=== PATIENT | male | born 1980 | race Caucasian/White ===

== ENCOUNTER 2020-10-12 23:47 | Emergency (ER) | payer OTHER ==
[2020-10-12 23:56] VITALS: BP 125/91; TEMP 98.1; BMI 23.7
[2020-10-13 01:02] LABS: BASO % 0.9 % (0-2.0); EOS % 3.7 % (0-4.5); HEMOGLOBIN 14.4 GM/dL (11.7-16.9); LYMPH % 30.6 % (8-40); MCH 27.7 pg (25.7-33.7); MCHC 34.2 g/dl (32.0-35.9); MEAN CELL VOLUME 81.1 fl (80-96); MEAN PLT VOLUME 8.2 fl (7.5-11.1); MONO % 9.3 % (3.8-10.2); NEUT % 55.5 % (42.8-82.8); PLATELET COUNT 272 K/MM3 (134-434); RBC 5.18 M/mm3 (4.00-5.60); RDW 13.7 % (11.9-15.9); WHITE BLOOD COUNT 7.5 K/mm3 (4.0-10.0)
[2020-10-13 01:20] LABS: CALCIUM 9.4 mg/dL (8.5-10.1)
[2020-10-13 01:21] LABS: ALBUMIN 4.1 g/dl (3.4-5.0); BLOOD UREA NITROGEN 22.3 mg/dL (7-18)
[2020-10-13 01:24] LABS: CREATININE 1.1 mg/dL (0.55-1.3)
[2020-10-13 01:26] LABS: BILIRUBIN,TOTAL 0.8 mg/dL (0.2-1)
[2020-10-13] MEDS ORDERED: MAG HYDROX/AL HYDROX/SIMETH -MYLANTA- ORAL SUSPENSION PO ONE (01:34)
[2020-10-13] MEDS ORDERED: FAMOTIDINE 20 MG/50 ML IVPB 20 MG/50 ML MG IVPB ONE (01:34)
[2020-10-13] MEDS ORDERED: POTASSIUM CHLORIDE TABS 20 MEQ TABLET.ER (FP) PO ONE ×2 (01:34→01:52)
[2020-10-13] MEDS ORDERED: POTASSIUM CHLORIDE TABS 10 MEQ TABLET.ER (FP) PO ONE ×2 (01:34)
[2020-10-13] MEDS ORDERED: FAMOTIDINE 20 MG TABLET PO ONE (01:35)
[2020-10-13] MEDS ORDERED: ACETAMINOPHEN 325 MG TABLET (FP) PO ONE (01:42)
[2020-10-13] MEDS ORDERED: ACETAMINOPHEN 500 MG TABLET (FP) PO ONE (01:42)
[2020-10-13] MEDS ORDERED: KCL 10 MEQ IVPB 10 MEQ/100 ML INFUS.BAG IVPB SCH (01:45)
[2020-10-13 01:50] LABS: MAGNESIUM 2.1 mg/dL (1.8-2.4)
[2020-10-13] MEDS ORDERED: ACETAMINOPHEN 325 MG TABLET (FP) ONE (01:51)
[2020-10-13] MEDS ORDERED: MAG HYDROX/AL HYDROX/SIMETH 30 ML UNIT-DOSE CUP ONE (01:52)
[2020-10-13 05:15] VITALS: PULSE 77
== END 2020-10-13 05:19 | disposition home or self-care (01) ==
LOC: JER 23:47
PROC: 3E033GC Introduction of Other Therapeutic Substance into Peripheral Vein, Percutaneous Approach (ICD-10-PCS; principal; 2020-10-12)
DX: R07.89 Other chest pain (principal); E87.6 Hypokalemia
CPT/HCPCS: 36415; 71045-TC-FY; 80053; 83735; 84484; 85025; 93005; 93010; 99285-25

== ENCOUNTER 2020-10-17 01:24 | Observation (INO) | payer OTHER ==
[2020-10-17 03:24] LABS: HEMOGLOBIN 14.3 GM/dL (11.7-16.9); MCH 27.5 pg (25.7-33.7); MEAN PLT VOLUME 8.1 fl (7.5-11.1)
[2020-10-17 03:31] LABS: COCAINE, UR NEGATIVE ng/ml (CUTOFF=300); METHADONE, UR NEGATIVE ng/ml (CUTOFF=300); URINE BARBITURATES NEGATIVE ng/ml (CUTOFF=200); URINE BENZODIAZEPINES NEGATIVE ng/ml (CUTOFF=200)
[2020-10-17 03:32] LABS: OPIATES, URI NEGATIVE ng/ml (CUTOFF=300); PHENCYCLIDINE,URINE NEGATIVE ng/ml (CUTOFF=25); URINE AMPHETAMINES NEGATIVE ng/ml (CUTOFF=500)
[2020-10-17 03:37] LABS: BASO % 1.4 % (0-2.0); EOS % 3.6 % (0-4.5); HEMATOCRIT 42.4 % (35.4-49); LYMPH % 36.8 % (8-40); MCHC 33.8 g/dl (32.0-35.9); MEAN CELL VOLUME 81.2 fl (80-96); NEUT % 48.2 % (42.8-82.8); PLATELET COUNT 298 K/MM3 (134-434); RBC 5.22 M/mm3 (4.00-5.60); RDW 13.6 % (11.9-15.9); WHITE BLOOD COUNT 6.2 K/mm3 (4.0-10.0)
[2020-10-17 03:39] LABS: POTASSIUM 3.2 mmol/L (3.5-5.1)
[2020-10-17 03:41] LABS: BLOOD UREA NITROGEN 18.1 mg/dL (7-18); CALCIUM 9.4 mg/dL (8.5-10.1)
[2020-10-17 03:42] LABS: ALBUMIN 4.2 g/dl (3.4-5.0); MAGNESIUM 2.5 mg/dL (1.8-2.4)
[2020-10-17 03:44] LABS: CREATININE 1.1 mg/dL (0.55-1.3)
[2020-10-17 03:46] LABS: BILIRUBIN,TOTAL 0.6 mg/dL (0.2-1)
[2020-10-17] MEDS ORDERED: ASPIRIN 81 MG CHEWABLE TABLETS PO ONE (04:35)
[2020-10-17] MEDS ORDERED: POTASSIUM CHLORIDE TABS 20 MEQ TABLET.ER (FP) PO ONE ×4 (04:56→09:45)
[2020-10-17] MEDS ORDERED: SODIUM CHLORIDE 0.9% 500 ML INFUS.BAG IV ONE (04:57)
[2020-10-17] MEDS ORDERED: ASPIRIN 81 MG CHEWABLE TABLETS ONE (05:11)
[2020-10-17] MEDS ORDERED: ALBUTEROL SO4 HFA INHALER IH PRN (08:29)
[2020-10-17 09:06] LABS: CHLORIDE 104 mmol/L (98-107); POTASSIUM 3.5 mmol/L (3.5-5.1); SODIUM 136 mmol/L (136-145)
[2020-10-17 09:07] LABS: CALCIUM 8.4 mg/dL (8.5-10.1)
[2020-10-17 09:08] LABS: ANION GAP 4 MMOL/L (8-16); BLOOD UREA NITROGEN 16.5 mg/dL (7-18); CO2 29 mmol/L (21-32); GLUCOSE,RANDOM 91 mg/dL (74-106); MAGNESIUM 2.8 mg/dL (1.8-2.4)
[2020-10-17] MEDS ORDERED: ENOXAPARIN NA (PORCINE) 40 MG/0.4 ML DISP.SYRIN SQ ONE (09:46)
[2020-10-17] MEDS ORDERED: FAMOTIDINE 20 MG TABLET ONE ×2 (09:46→22:46)
[2020-10-17] MEDS ORDERED: PANTOPRAZOLE 40 MG TABLET ONE (09:48)
[2020-10-17 09:49] LABS: CHOLESTEROL 186 mg/dL (50-200); TRIGLYCERIDES 81 mg/dL (0-150)
[2020-10-17 09:51] LABS: LDL CHOLESTEROL (ONLY SJRH) 111 mg/dL (5-100)
[2020-10-17 09:52] LABS: HDL CHOLESTEROL 62 mg/dL (40-60)
[2020-10-17] MEDS ORDERED: PANTOPRAZOLE 40 MG TABLET PO SCH (10:00)
[2020-10-17] MEDS: ENOXAPARIN NA (PORCINE) 40 MG/0.4 ML DISP.SYRIN SQ SCH (10:03)
[2020-10-17] MEDS: FAMOTIDINE 20 MG TABLET PO SCH ×2 (10:03→22:52)
[2020-10-17 12:17] LABS: LDH 110 U/L (87-246)
[2020-10-17 12:20] LABS: PHOSPHOROUS 2.3 mg/dL (2.5-4.9)
[2020-10-17] MEDS: FLUTICASONE PROP 0.05% 16 GM NASAL SPRAY NS SCH ×2 (13:07→22:52)
[2020-10-17] MEDS ORDERED: MONTELUKAST NA 10 MG TABLET ONE (22:46)
[2020-10-17] MEDS: MOMETASONE FUROATE 220 MCG/IH INHALER IH SCH (22:52)
[2020-10-17] MEDS: MONTELUKAST NA 10 MG TABLET PO SCH (22:52)
[2020-10-18] MEDS ORDERED: PT OWN MED DRAWER 7, Y5N ONE ×2 (08:55→21:19)
[2020-10-18] MEDS ORDERED: ASPIRIN 325 MG ENTERIC COATED TABLET (FP) ONE (08:58)
[2020-10-18] MEDS ORDERED: MONTELUKAST NA 10 MG TABLET ONE (08:58)
[2020-10-18] MEDS ORDERED: FAMOTIDINE 20 MG TABLET ONE (08:58)
[2020-10-18] MEDS ORDERED: ENOXAPARIN NA (PORCINE) 40 MG/0.4 ML DISP.SYRIN SQ ONE (08:59)
[2020-10-18 09:18] LABS: INR 1.08 (0.83-1.09); PROTHROMBIN TIME (PATIENT) 13.3 SEC (9.7-13.0)
[2020-10-18 09:21] LABS: ACTIVATED PTT 32.4 SECONDS (25.2-36.5)
[2020-10-18 09:39] LABS: POTASSIUM 3.7 mmol/L (3.5-5.1)
[2020-10-18 09:50] LABS: CALCIUM 9.6 mg/dL (8.5-10.1)
[2020-10-18 09:51] LABS: ALBUMIN 3.9 g/dl (3.4-5.0); BLOOD UREA NITROGEN 14.7 mg/dL (7-18)
[2020-10-18 09:54] LABS: CREATININE 0.9 mg/dL (0.55-1.3)
[2020-10-18 09:55] LABS: TOT PROT 7.5 g/dl (6.4-8.2)
[2020-10-18] MEDS: FLUTICASONE PROP 0.05% 16 GM NASAL SPRAY NS SCH ×2 (10:12→21:22)
[2020-10-18] MEDS: ENOXAPARIN NA (PORCINE) 40 MG/0.4 ML DISP.SYRIN SQ SCH (10:12)
[2020-10-18] MEDS: FAMOTIDINE 20 MG TABLET PO SCH ×2 (10:12→21:21)
[2020-10-18] MEDS ORDERED: ALBUTEROL SO4 HFA INHALER IH ONE (13:32)
[2020-10-18] MEDS ORDERED: CLOPIDOGREL BISULFATE 300 MG TABLET PO ONE (15:35)
[2020-10-18] MEDS ORDERED: CLOPIDOGREL BISULFATE 300 MG TABLET ONE (15:49)
[2020-10-18 21:11] VITALS: BMI 22.9
[2020-10-18] MEDS: MONTELUKAST NA 10 MG TABLET PO SCH (21:21)
[2020-10-18] MEDS: MOMETASONE FUROATE 220 MCG/IH INHALER IH SCH (21:22)
[2020-10-19 06:44] LABS: BASO % 1.1 % (0-2.0); EOS % 6.7 % (0-4.5); HEMATOCRIT 42.3 % (35.4-49); HEMOGLOBIN 14.5 GM/dL (11.7-16.9); LYMPH % 38.9 % (8-40); MCH 27.9 pg (25.7-33.7); MCHC 34.4 g/dl (32.0-35.9); MEAN PLT VOLUME 7.6 fl (7.5-11.1); MONO % 11.8 % (3.8-10.2); NEUT % 41.5 % (42.8-82.8); PLATELET COUNT 283 K/MM3 (134-434); RBC 5.22 M/mm3 (4.00-5.60); RDW 13.4 % (11.9-15.9); WHITE BLOOD COUNT 6.2 K/mm3 (4.0-10.0)
[2020-10-19 06:51] LABS: POTASSIUM 3.3 mmol/L (3.5-5.1)
[2020-10-19 06:53] LABS: CALCIUM 9.4 mg/dL (8.5-10.1)
[2020-10-19 06:54] LABS: ALBUMIN 3.9 g/dl (3.4-5.0); BLOOD UREA NITROGEN 18.9 mg/dL (7-18)
[2020-10-19 06:58] LABS: BILIRUBIN,TOTAL 0.5 mg/dL (0.2-1)
[2020-10-19 06:59] LABS: TOT PROT 7.5 g/dl (6.4-8.2)
[2020-10-19] MEDS ORDERED: ASPIRIN 81 MG CHEWABLE TABLETS PO SCH (10:00)
[2020-10-19] MEDS ORDERED: CLOPIDOGREL BISULFATE 75 MG TABLET (FP) PO SCH (10:00)
[2020-10-19] MEDS ORDERED: metoPROLOL SUCCINATE 25 MG TAB.SR.24H (FP) PO SCH (10:00)
[2020-10-19] MEDS: ENOXAPARIN NA (PORCINE) 40 MG/0.4 ML DISP.SYRIN SQ SCH (10:13)
[2020-10-19] MEDS: FLUTICASONE PROP 0.05% 16 GM NASAL SPRAY NS SCH (10:13)
[2020-10-19] MEDS: FAMOTIDINE 20 MG TABLET PO SCH (10:13)
[2020-10-19] MEDS ORDERED: POTASSIUM CHLORIDE TABS 20 MEQ TABLET.ER (FP) PO ONE (12:30)
[2020-10-19 13:46] VITALS: BP 98/67; PULSE 60; TEMP 98
[2020-10-19] MEDS ORDERED: ATORVASTATIN CA 80 MG TABLET (FP) PO SCH (22:00)
== END 2020-10-19 13:45 | disposition short-term general hospital (02) ==
LOC: JER 01:24 → JERBED 05:33 → J4S 10-18 18:34
PROVIDERS: ATTEND Nurse Practitioner Family
PROC: 3E0337Z Introduction of Electrolytic and Water Balance Substance into Peripheral Vein, Percutaneous Approach (ICD-10-PCS; principal; 2020-10-17)
PROC: 3E023GC Introduction of Other Therapeutic Substance into Muscle, Percutaneous Approach (ICD-10-PCS; 2020-10-17)
DX: J45.909 Unspecified asthma, uncomplicated (principal); F41.9 Anxiety disorder, unspecified; J45.998 Other asthma; F41.0 Panic disorder [episodic paroxysmal anxiety]; E78.5 Hyperlipidemia, unspecified; K29.70 Gastritis, unspecified, without bleeding; R07.89 Other chest pain; K21.9 Gastro-esophageal reflux disease without esophagitis; Z29.9 Encounter for prophylactic measures, unspecified; R77.8 Other specified abnormalities of plasma proteins; E87.6 Hypokalemia; Z88.0 Allergy status to penicillin
CPT/HCPCS: 36415; 71275-TC; 80048; 80053; 80061; 80307; 82550; 82728; 83036; 83615; 83721; 83735; 83880; 84100; 84436; 84443; 84484; 85025; 85379; 85610; 85730; 86140; 93005; 93010; 93306-TC; 93970-TC; 99285-25; C9803; G0378; Q9967; U0003

== ENCOUNTER 2021-03-13 21:20 | Observation (INO) | payer OTHER ==
[2021-03-13] MEDS ORDERED: FAMOTIDINE 20 MG/50 ML IVPB 20 MG/50 ML MG IVPB ONE ×2 (21:44→22:16)
[2021-03-13] MEDS ORDERED: MAG HYDROX/AL HYDROX/SIMETH 30 ML UNIT-DOSE CUP PO ONE (21:44)
[2021-03-13] MEDS ORDERED: ACETAMINOPHEN 1000 MG/100 ML VIAL (NON FORMULARY) IVPB ONE (21:45)
[2021-03-13] MEDS ORDERED: ONDANSETRON 4 MG/2 ML VIAL ONE (22:16)
[2021-03-13] MEDS ORDERED: MAG HYDROX/AL HYDROX/SIMETH 30 ML UNIT-DOSE CUP ONE (22:16)
[2021-03-13] MEDS ORDERED: ACETAMINOPHEN INJECTION 100 ML IVPB ONE (22:16)
[2021-03-13] MEDS ORDERED: LIDOCAINE VISCOUS 2% ORAL/TOP 20 ML UNIT-DOSE CUP MM ONE (22:18)
[2021-03-13] MEDS ORDERED: SODIUM CHLORIDE 1,000 ML IV STA (22:18)
[2021-03-13] MEDS: ONDANSETRON 4 MG/2 ML VIAL IVPB ONE ×2 (22:31→22:53)
[2021-03-13 22:50] LABS: BASO % 0.8 % (0-2.0); EOS % 3.8 % (0-4.5); HEMATOCRIT 41.8 % (35.4-49); LYMPH % 16.8 % (8-40); MCH 27.4 pg (25.7-33.7); MCHC 33.5 g/dl (32.0-35.9); MEAN CELL VOLUME 81.7 fl (80-96); MEAN PLT VOLUME 8.5 fl (7.5-11.1); MONO % 5.4 % (3.8-10.2); NEUT % 73.2 % (42.8-82.8); PLATELET COUNT 264 K/MM3 (134-434); RBC 5.12 M/mm3 (4.00-5.60); WHITE BLOOD COUNT 8.5 K/mm3 (4.0-10.0)
[2021-03-13 22:58] LABS: INR 1.04 (0.83-1.09); PROTHROMBIN TIME (PATIENT) 12.8 SEC (9.7-13.0)
[2021-03-13 23:01] LABS: ACTIVATED PTT 28.8 SECONDS (25.2-36.5); CHLORIDE 99 mmol/L (98-107); SODIUM 137 mmol/L (136-145)
[2021-03-13 23:04] LABS: ANION GAP 7 MMOL/L (8-16); BLOOD UREA NITROGEN 17.5 mg/dL (7-18); CALCIUM 9.3 mg/dL (8.5-10.1); CO2 31 mmol/L (21-32); GLUCOSE,RANDOM 151 mg/dL (74-106); LIPASE 76 U/L (73-393); MAGNESIUM 2.1 mg/dL (1.8-2.4)
[2021-03-13 23:07] LABS: CHOLESTEROL 206 mg/dL (50-200); CREATININE 0.9 mg/dL (0.55-1.3); SGOT/AST 221 U/L (15-37); SGPT/ALT 464 U/L (13-61); TRIGLYCERIDES 105 mg/dL (0-150)
[2021-03-13 23:08] LABS: BILIRUBIN,TOTAL 0.8 mg/dL (0.2-1); LDL CHOLESTEROL (ONLY SJRH) 100 mg/dL (5-100); TOT PROT 7.7 g/dl (6.4-8.2)
[2021-03-13 23:09] LABS: ALK PHOS 332 U/L (45-117); HDL CHOLESTEROL 73 mg/dL (40-60)
[2021-03-14] MEDS ORDERED: POTASSIUM CHLORIDE TABS 20 MEQ TABLET.ER (FP) PO ONE ×2 (00:44→02:08)
[2021-03-14] MEDS ORDERED: morphine CARPU-JECT 4 MG/1 ML DISP.SYRIN IVPUSH ONE (01:09)
[2021-03-14] MEDS ORDERED: MORPHINE SULFATE 2 MG/ML VIAL ONE (02:08)
[2021-03-14] MEDS ORDERED: PANTOPRAZOLE 20 MG TABLET PO ONE (13:23)
[2021-03-14] MEDS ORDERED: ASPIRIN COATED 81 MG TABLET.EC ONE (13:23)
[2021-03-14] MEDS: ASPIRIN COATED 81 MG TABLET.EC PO SCH (13:30)
[2021-03-14] MEDS: PANTOPRAZOLE 40 MG TABLET PO SCH (13:30)
[2021-03-14] MEDS ORDERED: MAG HYDROX/AL HYDROX/SIMETH 30 ML UNIT-DOSE CUP ONE (16:59)
[2021-03-14] MEDS: MAG HYDROX/AL HYDROX/SIMETH 30 ML UNIT-DOSE CUP PO PRN (17:00)
[2021-03-14 17:48] VITALS: BMI 22.8
[2021-03-14] MEDS ORDERED: KETOROLAC TROMETHAMINE 15 MG/ML VIAL IVPUSH ONE (22:25)
[2021-03-15 08:33] LABS: BASO % 1.3 % (0-2.0); EOS % 14.8 % (0-4.5); HEMATOCRIT 41.2 % (35.4-49); HEMOGLOBIN 13.9 GM/dL (11.7-16.9); LYMPH % 28.7 % (8-40); MCH 27.5 pg (25.7-33.7); MCHC 33.6 g/dl (32.0-35.9); MEAN CELL VOLUME 81.8 fl (80-96); MEAN PLT VOLUME 8.4 fl (7.5-11.1); MONO % 11.3 % (3.8-10.2); NEUT % 43.9 % (42.8-82.8); PLATELET COUNT 246 K/MM3 (134-434); RBC 5.04 M/mm3 (4.00-5.60); RDW 13.9 % (11.9-15.9); WHITE BLOOD COUNT 5.1 K/mm3 (4.0-10.0)
[2021-03-15 09:02] LABS: ALBUMIN 3.6 g/dl (3.4-5.0); BLOOD UREA NITROGEN 18.1 mg/dL (7-18); CALCIUM 9.5 mg/dL (8.5-10.1)
[2021-03-15 09:05] LABS: CREATININE 0.9 mg/dL (0.55-1.3)
[2021-03-15 09:07] LABS: BILIRUBIN,TOTAL 0.7 mg/dL (0.2-1); TOT PROT 7.2 g/dl (6.4-8.2)
[2021-03-15] MEDS: PANTOPRAZOLE 40 MG TABLET PO SCH (09:43)
[2021-03-15] MEDS: ASPIRIN COATED 81 MG TABLET.EC PO SCH (09:43)
[2021-03-15] MEDS ORDERED: POTASSIUM CHLORIDE TABS 10 MEQ TABLET.ER (FP) PO ONE (15:39)
[2021-03-15] MEDS: MAG HYDROX/AL HYDROX/SIMETH 30 ML UNIT-DOSE CUP PO PRN (17:25)
[2021-03-16 09:12] LABS: CALCIUM 9.4 mg/dL (8.5-10.1)
[2021-03-16 09:13] LABS: ALBUMIN 3.7 g/dl (3.4-5.0); BLOOD UREA NITROGEN 13.3 mg/dL (7-18)
[2021-03-16 09:16] LABS: CREATININE 0.9 mg/dL (0.55-1.3)
[2021-03-16 09:17] LABS: BILIRUBIN,TOTAL 1.4 mg/dL (0.2-1); TOT PROT 7.8 g/dl (6.4-8.2)
[2021-03-16] MEDS: PANTOPRAZOLE 40 MG TABLET PO SCH (10:00)
[2021-03-16] MEDS: ASPIRIN COATED 81 MG TABLET.EC PO SCH (10:00)
[2021-03-16 10:13] VITALS: BP 115/67; PULSE 65; TEMP 98.9
[2021-03-16] MEDS ORDERED: ASPIRIN COATED 81 MG TABLET.EC PO SCH (11:35)
[2021-03-16 16:08] LABS: HEP B CORE AB, TOT Negative (Negative)
== END 2021-03-16 15:31 | disposition left against medical advice (07) ==
LOC: JER 21:20 → INTOOBSV 03-14 01:09 → UNDOADMOB 03-14 01:09 → JERBED 03-14 01:09 → J5S 03-14 18:08
PROVIDERS: ADMIT Hospitalist; ATTEND Family Medicine
PROC: 3E033GC Introduction of Other Therapeutic Substance into Peripheral Vein, Percutaneous Approach (ICD-10-PCS; principal; 2021-03-14)
PROC: 3E033NZ Introduction of Analgesics, Hypnotics, Sedatives into Peripheral Vein, Percutaneous Approach (ICD-10-PCS; 2021-03-14)
PROC: 3E0333Z Introduction of Anti-inflammatory into Peripheral Vein, Percutaneous Approach (ICD-10-PCS; 2021-03-14)
DX: K21.9 Gastro-esophageal reflux disease without esophagitis (principal); R07.89 Other chest pain; R74.01 Elevation of levels of liver transaminase levels; R77.8 Other specified abnormalities of plasma proteins; R79.89 Other specified abnormal findings of blood chemistry; E87.6 Hypokalemia; E78.5 Hyperlipidemia, unspecified; J45.909 Unspecified asthma, uncomplicated; I25.2 Old myocardial infarction
CPT/HCPCS: 36415; 71045-TC-FY; 74181-TC; 76705-TC; 80053; 80061; 82150; 82550; 82553; 82728; 83540; 83550; 83690; 83721; 83735; 84484; 85025; 85027; 85610; 85730; 86140; 86704; 86706; 86707; 86708; 86709; 86803; 86850; 86900; 86901; 87340; 93005; 93010; 99285-25; C9803; G0378; J0131; U0003; U0005

== ENCOUNTER 2021-07-09 13:02 | Emergency (ER) | payer OTHER ==
[2021-07-09 13:19] VITALS: TEMP 97.4; BMI 22.6
[2021-07-09] MEDS ORDERED: SODIUM CHLORIDE 0.9% 1000 ML INFUS.BAG IV ONE (13:37)
[2021-07-09 14:15] LABS: BASO % 1.7 % (0-2.0); EOS % 3.8 % (0-4.5); HEMATOCRIT 40.1 % (35.4-49); HEMOGLOBIN 13.6 GM/dL (11.7-16.9); LYMPH % 46.1 % (8-40); MCH 27.5 pg (25.7-33.7); MCHC 33.9 g/dl (32.0-35.9); MEAN CELL VOLUME 81.2 fl (80-96); MEAN PLT VOLUME 7.9 fl (7.5-11.1); MONO % 8.3 % (3.8-10.2); NEUT % 40.1 % (42.8-82.8); PLATELET COUNT 248 10^3/uL (134-434); RBC 4.94 M/mm3 (4.00-5.60); RDW 13.7 % (11.9-15.9); WHITE BLOOD COUNT 4.5 K/mm3 (4.0-10.0)
[2021-07-09 14:40] LABS: CALCIUM 8.9 mg/dL (8.5-10.1)
[2021-07-09 14:41] LABS: ALBUMIN 3.5 g/dl (3.4-5.0); BLOOD UREA NITROGEN 22.3 mg/dL (7-18); MAGNESIUM 2.2 mg/dL (1.8-2.4)
[2021-07-09 14:44] LABS: CREATININE 0.9 mg/dL (0.55-1.3); PHOSPHOROUS 3.3 mg/dL (2.5-4.9)
[2021-07-09 14:46] LABS: BILIRUBIN,TOTAL 0.7 mg/dL (0.2-1); TOT PROT 6.8 g/dl (6.4-8.2)
[2021-07-09] MEDS ORDERED: POTASSIUM CHLORIDE TABS 20 MEQ TABLET.ER (FP) PO ONE (15:16)
[2021-07-09] MEDS ORDERED: POTASSIUM CHLORIDE ORAL LIQUID 20 MEQ/15 ML ONE (15:25)
[2021-07-09 16:25] LABS: PH,URINE 7.5 (5.0-8.0); URINE APPEARANCE CLEAR; URINE BILIRUBIN NEGATIVE (NEGATIVE); URINE COLOR YELLOW; URINE GLUCOSE (UA) NEGATIVE (NEGATIVE); URINE KETONE NEGATIVE (NEGATIVE); URINE LEUK ESTERASE NEGATIVE (NEGATIVE); URINE NITRITE NEGATIVE (NEGATIVE); URINE PROTEIN NEGATIVE (NEGATIVE); URINE UROBILINOGEN 0.2 mg/dL (0.2-1.0)
[2021-07-09 17:04] LABS: COCAINE, UR NEGATIVE (NEGATIVE); METHADONE, UR NEGATIVE (NEGATIVE); OPIATES, URI NEGATIVE (NEGATIVE); URINE BARBITURATES NEGATIVE (NEGATIVE)
[2021-07-09 17:05] LABS: PHENCYCLIDINE,URINE NEGATIVE (NEGATIVE)
[2021-07-09 17:06] LABS: URINE AMPHETAMINES NEGATIVE (NEGATIVE); URINE BENZODIAZEPINES POSITIVE (NEGATIVE)
[2021-07-09 18:06] VITALS: BP 108/68; PULSE 72
== END 2021-07-09 18:06 | disposition home or self-care (01) ==
LOC: JER 13:02
DX: R55 Syncope and collapse (principal); E87.6 Hypokalemia
CPT/HCPCS: 36415; 71045-TC-FY; 80053; 80307; 81003; 82962; 83735; 84100; 84484; 85025; 87086; 93005; 93010; 99285-25

== ENCOUNTER → 2021-07-09 | Day surgery (SDC) | payer OTHER ==
[2021-07-06 16:47] VITALS: BMI 22.6
[~2021-07-09] MED LIST: MIDAZOLAM HCL 2 MG/2 ML SINGLE DOSE VIAL IVPUSH ONE; SODIUM CHLORIDE 500 ML IV ONE
[2021-07-09 10:43] VITALS: TEMP 97.7
[2021-07-09 18:12] VITALS: BP 115/68; PULSE 52
== END | disposition home or self-care (01) ==
LOC: JRADIR 06:57
PROVIDERS: ATTEND Internal Medicine Gastroenterology
PROC: 0FB03ZX Excision of Liver, Percutaneous Approach, Diagnostic (ICD-10-PCS; principal; 2021-07-09 12:00)
DX: R94.5 Abnormal results of liver function studies (principal)
CPT/HCPCS: 47000; 76942-TC; 87899; 88305-TC; 88313-TC